=== PATIENT | female | born 1980 | race Two or more races ===

== ENCOUNTER 2019-01-26 18:30 | Outpatient (CLI) | payer OTHER ==
[2019-01-26] MEDS ORDERED: PRENATAL TABLE1 EAC1 PO (18:35)
[2019-01-26] MEDS ORDERED: SYNTHROID50 MCG PO (18:35)
[2019-01-27] MEDS ORDERED: CLINDAMYCIN HC300 MG PO (08:29)
== END 2019-01-27 10:16 | disposition home or self-care (01) ==
LOC: OBS/DEL 18:30
DX: O26.892 Other specified pregnancy related conditions, second trimester (principal); R10.2 Pelvic and perineal pain; Z34.82 Encounter for supervision of other normal pregnancy, second trimester; O23.592 Infection of other part of genital tract in pregnancy, second trimester; N76.0 Acute vaginitis

== ENCOUNTER → 2019-04-08 | Outpatient (CLI) | payer OTHER ==
[~2019-04-08] MED LIST: CLINDAMYCIN HC300 MG PO; PRENATAL TABLE1 EAC1 PO; SYNTHROID50 MCG PO
== END | disposition home or self-care (01) ==
LOC: PRENATAL 10:00
DX: O99.89 Other specified diseases and conditions complicating pregnancy, childbirth and the puerperium (principal); O09.522 Supervision of elderly multigravida, second trimester; O34.40 Maternal care for other abnormalities of cervix, unspecified trimester; O26.20 Pregnancy care for patient with recurrent pregnancy loss, unspecified trimester

== ENCOUNTER 2019-04-30 14:45 | Inpatient (IN) | payer OTHER ==
[~2019-04-30] VITALS: Ht 165.1 cm; Wt 97.5 kg
[2019-05-15] MEDS ORDERED: IBUPROFEN400 MG PO (12:47)
[2019-05-15] MEDS ORDERED: Tylenol Extra Streng PO (12:47)
== END 2019-05-15 13:08 | DRG 807 ==
LOC: OB/GYN 14:45 → LDR 05-13 10:31 → OB/GYN 05-13 10:31
PROVIDERS: ADMIT Obstetrics & Gynecology
PROC: 10E0XZZ Delivery of Products of Conception, External Approach (ICD-10-PCS; principal; 2019-05-13)
PROC: 4A1HXCZ Monitoring of Products of Conception, Cardiac Rate, External Approach (ICD-10-PCS; 2019-05-13)
PROC: 0HQ9XZZ Repair Perineum Skin, External Approach (ICD-10-PCS; 2019-05-13)
DX: O70.0 First degree perineal laceration during delivery (principal); Z37.0 Single live birth; Z3A.40 40 weeks gestation of pregnancy